=== PATIENT | female | born 1980 | race Caucasian/White ===

== ENCOUNTER 2019-05-22 14:34 | Inpatient (IN) | payer OTHER ==
[2019-05-22 18:10] VITALS: BMI 21.4
--- NOTE | 2019-05-22 19:01 | HP ---
COWS - Scale Resting Pulse: 0= [place] 80 or Below Sweatin= Chills/Flushing Restless Observation: 1= Difficult to Sit Still Pupil Size: 1= Pupils >than Normal Bone or Joint Aches: 2= Severe Diffuse Aches Runny Nose/ Eye Tearin= Runny Nose/Eyes GI Upset > 30mins: 3= Vomiting/Diarrhea Tremor Observation: 2= Slight Tremor Visible Yawning Observation: 2= >3x During Session Anxiety or Irritability: 2=Irritable/Anxious Goose Flesh Skin: 0=Smooth Skin COWS Score: 16 CIWA Score Nausea/Vomitin Muscle Tremors: 3 Anxiety: 3 Agitation: 3 Paroxysmal Sweats: 1-Minimal Palms Moist Orientation: 0-Oriented Tacttile Disturbances: 1-Very Mild Itch/Numbness Auditory Disturbances: 0-None Visual Disturbances: 0-None Headache: 2-Mild CIWA-Ar Total Score: 15 - Admission Criteria OASAS Guidelines: Admission for Medically Managed Detox: Requires at least one of the followin. CIWA greater than 12 2. Seizures within the past 24 hours 3. Delirium tremens within the past 24 hours 4. Hallucinations within the past 24 hours 5. Acute intervention needed for co occurring medical disorder 6. Acute intervention needed for co occurring psychiatric disorder 7. Severe withdrawal that cannot be handled at a lower level of care (continued vomiting, continued diarrhea, abnormal vital signs) requiring intravenous medication and/or fluids 8. Admitting History and Physical - Admission Chief Complaint: i need help to stop using heroin,alcohol,cocaine and [place] History of Present Illness: this 38 years old female with heroin,alcohol,cocaine,marijuana dependence seeking detox,withdrawal symptom no seizure no syncope nicotine dependence anxiety,insomnia last detox 2017,not completed,did not remember the facility longest sobriety 2 years plan for rehab after detox History Source: Patient Limitations to Obtaining History: No Limitations - Past Medical History ...LMP: 03/21/19 ...: No ...: 10 ...Para: 3 Psych: Yes: Anxiety, Other (insomnia) - Past Surgical History Past Surgical History: Yes: Appendectomy, Tonsillectomy Additional Past Surgical History: appendectomy at age 25 years ectopic left at age 31 tosillectomy at age of a15 - Smoking History Smoking history: Current every day smoker Have you smoked in the past 12 months: Yes Aproximately how many cigarettes per day: 30 - Alcohol/Substance Use Hx Alcohol Use: Yes History of Substance Use: reports: Cocaine, Heroin, Marijuana - Social History Usual Living Arrangement: Yes: With Child Occupation: unemployed History of Recent Travel: No Other Social History: this 38 years old female with heroin,alcohol,cocaine marijuana dependence,smoke 30 cigarette,unemployed ,for detox Admission [facility] Chief Complaint: i need help to stop using heroin,alcohol,cocaine and marijuana Allergies/Adverse Reactions: Allergies Allergy/AdvReac Type Severity Reaction Status Date / Time No Known Allergies Allergy Verified 05/22/19 18:06 History of Present Illness: this 38 years old female with heroin,alcohol,cocaine and marijuana dependence, seeking detox,withdrawal symptom, denied seizure denied syncope nicotine dependence anxiety,insomnia last detox 2018 plan for rehab after detox Exam Limitations: No Limitations - Ebola screening Have you traveled outside of the country in the last 21 days: No (N) Have you had contact with anyone from an Ebola affected area: No Do you have a fever: No - Review of Systems Constitutional: Chills, Loss of Appetite, Night Sweats, Changes in sleep, Weakness, Unintentional Wgt. Loss EENT: reports: Tearing, Nose Congestion Respiratory: reports: No Symptoms reported Cardiac: reports: No Symptoms Reported GI: reports: Diarrhea, Nausea, Poor Fluid Intake, Vomiting : reports: No Symptoms Reported Musculoskeletal: reports: Back Pain, Joint Pain, Muscle Pain Integumentary: reports: Dryness Neuro: reports: Headache, Tremors Endocrine: reports: No Symptoms Reported Hematology: reports: No Symptoms Reported Psychiatric: reports: No Sypmtoms Reported, Judgement Intact, Mood/Affect Appropiate, Orientated x3, Agitated, Anxious, other (insomnia) Patient History - Patient Medical History Hx Anemia: No Hx Asthma: No Hx Chronic Obstructive Pulmonary Disease (COPD): No Hx Cancer: No Hx Cardiac Disorders: No Hx Congestive Heart Failure: No Hx Hypertension: No Hx Hypercholesterolemia: No Hx Pacemaker: No HX Cerebrovascular Accident: No Hx Seizures: No Hx Dementia: No Hx Diabetes: No Hx Gastrointestinal Disorders: No Hx Liver Disease: No Hx Genitourinary Disorders: No Hx Sexually Transmitted Disorders: No Hx Renal Disease (ESRD): No Hx Thyroid Disease: No Hx Human Immunodeficiency Virus (HIV): No (last 11/18 negative) Hx Hepatitis C: No Hx Depression: Yes (anxiety,insomnia) Hx Suicide Attempt: No Hx Bipolar Disorder: No Hx Schizophrenia: No Other Medical History: no suicidal,no homicidal - Patient Surgical History Past Surgical History: No Hx Neurologic Surgery: No Hx Cataract Extraction: No Hx Cardiac Surgery: No Hx Lung Surgery: No Hx Breast Surgery: No Hx Breast Biopsy: No Hx Abdominal Surgery: No Hx Appendectomy: Yes (at age 25) Hx Cholecystectomy: No Hx Genitourinary Surgery: No Hx Section: No Hx Orthopedic Surgery: No Other Surgical History: ECTOPIC- 2012,tonsillectomy age 15 Anesthesia Reaction: No - PPD History Previous Implant?: Yes Documented Results: Negative w/o proof Implanted On Prior R Admission?: No PPD to be Administered?: Yes - Reproductive History Patient is a Female of Child Bearing Age (11 -55 yrs old): Yes Last Menstrual Period: 04/21/19 Patient : No - Smoking Cessation Smoking history: Current every day smoker Have you smoked in the past 12 months: Yes Aproximately how many cigarettes per day: 30 Hx Chewing Tobacco Use: No Initiated information on smoking cessation: No 'Breaking Loose' booklet given: 05/22/19 - Substance & Tx. History Hx Alcohol Use: Yes Hx Substance Use: Yes Substance Use Type: Alcohol, Cocaine, Heroin, Marijuana Hx Substance Use Treatment: Yes (2018) - Substances abused Heroin Substance route: Inhalation Frequency: Daily Amount used: 5 bags Age of first use: 38 Date of last use: 05/21/19 Alcohol Substance route: Oral Frequency: Daily Amount used: LIQUOR- 4 PINTS Age of first use: 12 Date of last use: 05/22/19 Crack Substance route: Smoking Frequency: Daily Amount used: $100 WORTH Age of first use: 25 Date of last use: 05/21/19 Marijuana/Hashish Substance route: Smoking Frequency: Daily Amount used: 20$ Age of first use: 17 Date of last use: 05/21/19 Admission Physical Exam BHS - Vital Signs Vital Signs: Vital Signs - 24 hr 05/22/19 05/22/19 18:06 18:21 Temperature 97.4 F L 97.4 F L Pulse Rate 65 65 Respiratory 18 18 Rate Blood Pressure 118/67 118/67 - Physical General Appearance: Yes: Moderate Distress, Tremorous, Irritable, Sweating, Anxious HEENTM: Yes: Normocephalic, ERIKA, Pharynx Normal Respiratory: Yes: Lungs Clear, Normal Breath Sounds, No Respiratory Distress Neck: Yes: Within Normal Limits, Supple, Trachea in good position Breast: Yes: Breast Exam Deferred Cardiology: Yes: Within Normal Limits, Regular Rhythm, Regular Rate, S1, S2 Abdominal: Yes: Within Normal Limits, Normal Bowel Sounds, Non Tender, Flat, Soft, Surgical Scar Genitourinary: Yes: Within Normal Limits Back: Yes: Muscle Spasm Musculoskeletal: Yes: Back pain, Muscle Pain Extremities: Yes: Tremors Neurological: Yes: personal care assistant II-XII NML intact, Fully Oriented, Alert, Motor Strength 5/5 Integumentary: Yes: Dry Lymphatic: Yes: Within Normal Limits - Diagnostic (1) Opioid dependence with withdrawal Current Visit: Yes Status: Acute (2) Alcohol dependence with uncomplicated withdrawal Current Visit: Yes Status: Acute (3) Cocaine dependence Current Visit: Yes Status: Acute (4) Cannabis abuse Current Visit: Yes Status: Acute (5) Weight loss Current Visit: Yes Status: Acute (6) Nicotine dependence Current Visit: Yes Status: Acute (7) Anxiety Current Visit: Yes Status: Acute (8) Insomnia Current Visit: Yes Status: Acute Cleared for Admission S - Detox or Rehab [facility] Level of Care: Medically Managed Detox Regimen/Protocol: Methadone/Librium Breathalyzer - Breathalyzer Breathalyzer: 0 Urine Drug Screen - Test Device Lot number: [id number] Expiration date: 12/30/20 - Control Is test valid?: Yes - Results Drug screen NEGATIVE: No Urine drug screen results: THC-Marijuana, FRANCINE-Cocaine, MOP-Opiates Inpatient Rehab Admission - Rehab Decision to Admit Inpatient rehab admission?: No
[2019-05-22] MEDS ORDERED: MAGNESIUM HYDROX 2400MG/30ML ORAL SUSPENSION 30 ML CUP PO PRN (19:19)
[2019-05-22] MEDS ORDERED: BISMUTH SUBSALICYLATE 524 MG/30 ML UD PO PRN (19:19)
[2019-05-22] MEDS ORDERED: cloNIDine HCL 0.1 MG TABLET PO PRN (19:19)
[2019-05-22] MEDS ORDERED: ACETAMINOPHEN 325 MG TABLET (FP) PO PRN (19:19)
[2019-05-22] MEDS ORDERED: MAGNESIUM CITRATE 300 ML BOTTLE PO PRN (19:19)
[2019-05-22] MEDS ORDERED: chlordiazePOXIDE HCL 25 MG CAPSULE PO PRN (19:19)
[2019-05-22] MEDS ORDERED: MAG HYDROX/AL HYDROX/SIMETH 30 ML UNIT-DOSE CUP PO PRN (19:19)
[2019-05-22] MEDS ORDERED: METHADONE HCL 10 MG TABLET (FOR DETOX USE ONLY) PO ONE (20:00)
[2019-05-22] MEDS: NICOTINE 21 MG/24 HOURS TOPICAL PATCH TD SCH (21:18)
[2019-05-22] MEDS: THIAMINE HCL 100 MG TABLET (FP) PO SCH (22:32)
[2019-05-22] MEDS: MELATONIN 5 MG TABLETS PO PRN (22:32)
[2019-05-22] MEDS: chlordiazePOXIDE HCL 25 MG CAPSULE PO SCH (22:32)
[2019-05-22] MEDS: METHOCARBAMOL 500 MG TABLET PO PRN (22:33)
[2019-05-23] MEDS: chlordiazePOXIDE HCL 25 MG CAPSULE PO SCH ×4 (05:48→22:07)
[2019-05-23] MEDS: ACETAMINOPHEN 325 MG TABLET (FP) PO PRN ×3 (05:50→22:07)
[2019-05-23] MEDS ORDERED: METHADONE HCL 5 MG TABLET (FOR DETOX USE ONLY) PO ONE (10:00)
[2019-05-23 10:42] LABS: HEMATOCRIT 41.3 % (32.4-45.2); HEMOGLOBIN 13.8 GM/dL (10.7-15.3); MCH 31.2 pg (25.7-33.7); MCHC 33.4 g/dl (32.0-36.0); MEAN CELL VOLUME 93.2 fl (80-96); MEAN PLT VOLUME 8.1 fl (7.5-11.1); PLATELET COUNT 252 K/MM3 (134-434); RBC 4.43 M/mm3 (3.60-5.2); RDW 13.7 % (11.6-15.6)
[2019-05-23] MEDS: NICOTINE 21 MG/24 HOURS TOPICAL PATCH TD SCH (10:42)
[2019-05-23] MEDS: NICOTINE POLACRILEX 2 MG GUM BUC PRN (10:43)
[2019-05-23] MEDS: PRENATAL VITAMINS W/ FOLIC ACID TABLET (FP) PO SCH (10:43)
[2019-05-23 10:55] LABS: ALBUMIN 3.8 g/dl (3.4-5.0); BILIRUBIN,TOTAL 0.7 mg/dL (0.2-1); BLOOD UREA NITROGEN 12.8 mg/dL (7-18); CALCIUM 9.5 mg/dL (8.5-10.1); CREATININE 0.7 mg/dL (0.55-1.3); POTASSIUM 3.6 mmol/L (3.5-5.1); TOT PROT 7.1 g/dl (6.4-8.2)
--- NOTE | 2019-05-23 13:03 | PN ---
S CIWA - CIWA Score Nausea/Vomitin-No Nausea/No Vomiting Muscle Tremors: 2 Anxiety: 3 Agitation: 0-Normal Activity Paroxysmal Sweats: 3 Orientation: 0-Oriented Tacttile Disturbances: 0-None Auditory Disturbances: 0-None Visual Disturbances: 0-None Headache: 2-Mild CIWA-Ar Total Score: 10 S COWS - Scale Resting Pulse: 0= [place] 80 or Below Sweatin= Beads of Sweat on Face Restless Observation: 1= Difficult to Sit Still Pupil Size: 0= Normal to Room Light Bone or Joint Aches: 1= Mild Discomfort Runny Nose/ Eye Tearin= None GI Upset > 30mins: 0= None Tremor Observation of Outstretched Hands: 2= Slight Tremor Visible Yawning Observation: 1= 1-2x During Session Anxiety or Irritability: 2=Irritable/Anxious Goose Flesh Skin: 0=Smooth Skin COWS Score: 10 S Progress Note (SOAP) Subjective: c/o moderate withdrawal symptoms. Objective: 05/23/19 13:04 Vital Signs 05/23/19 05/23/19 06:32 10:14 Temperature 97.7 F 97.7 F Pulse Rate 65 53 L Respiratory 18 16 Rate Blood Pressure 134/63 116/83 Laboratory Last Values WBC 6.0 K/mm3 (4.0-10.0) 05/23/19 07:35 RBC 4.43 M/mm3 (3.60-5.2) 05/23/19 07:35 Hgb 13.8 GM/dL (10.7-15.3) 05/23/19 07:35 Hct 41.3 % (32.4-45.2) 05/23/19 07:35 MCV 93.2 fl (80-96) 05/23/19 07:35 MCH 31.2 pg (25.7-33.7) 05/23/19 07:35 MCHC 33.4 g/dl (32.0-36.0) 05/23/19 07:35 RDW 13.7 % (11.6-15.6) 05/23/19 07:35 Plt Count 252 K/MM3 (134-434) 05/23/19 07:35 MPV 8.1 fl (7.5-11.1) 05/23/19 07:35 Sickle Cell Screen Negative (NEGATIVE) 05/23/19 07:35 Sodium 138 mmol/L (136-145) 05/23/19 07:35 Potassium 3.6 mmol/L (3.5-5.1) 05/23/19 07:35 Chloride 103 mmol/L (98-107) 05/23/19 07:35 Carbon Dioxide 29 mmol/L (21-32) 05/23/19 07:35 Anion Gap 7 MMOL/L (8-16) L 05/23/19 07:35 BUN 12.8 mg/dL (7-18) 05/23/19 07:35 Creatinine 0.7 mg/dL (0.55-1.3) 05/23/19 07:35 Est GFR (CKD-EPI)AfAm 127.39 05/23/19 07:35 Est GFR (CKD-EPI)NonAf 109.91 05/23/19 07:35 Random Glucose 121 mg/dL (74-106) H 05/23/19 07:35 Calcium 9.5 mg/dL (8.5-10.1) 05/23/19 07:35 Total Bilirubin 0.7 mg/dL (0.2-1) 05/23/19 07:35 AST 29 U/L (15-37) 05/23/19 07:35 ALT 54 U/L (13-61) 05/23/19 07:35 Alkaline Phosphatase 83 U/L (45-117) 05/23/19 07:35 Total Protein 7.1 g/dl (6.4-8.2) 05/23/19 07:35 Albumin 3.8 g/dl (3.4-5.0) 05/23/19 07:35 Labs noted. Assessment: 05/23/19 13:04 AOX3, in no acute respiratory distress. Full ROM, ambulating in the unit. Withdrawal symptoms Plan: continue detox.
[2019-05-23] MEDS: hydrOXYzine PAMOATE 25 MG CAPSULE (FP) PO PRN (13:15)
[2019-05-23] MEDS: METHOCARBAMOL 500 MG TABLET PO PRN (13:15)
[2019-05-23] MEDS: IBUPROFEN 400 MG TABLET (FP) PO PRN (18:04)
--- NOTE | 2019-05-23 18:44 | EKG ---
Test Reason : Blood Pressure : / mmHG Vent. Rate : 061 BPM Atrial Rate : 061 BPM P-R Int : 160 ms QRS Dur : 090 ms QT Int : 480 ms P-R-T Axes : -05 024 021 degrees QTc Int : 483 ms NORMAL SINUS RHYTHM NORMAL ECG NO PREVIOUS ECGS AVAILABLE Confirmed by CHERRY BANGURA MD ([id number]) on 05/23/2019 6:44:29 PM Referred By: Confirmed By:CHERRY BANGURA MD
[2019-05-23] MEDS: THIAMINE HCL 100 MG TABLET (FP) PO SCH (22:07)
[2019-05-24] MEDS: METHOCARBAMOL 500 MG TABLET PO PRN ×3 (01:51→22:19)
[2019-05-24] MEDS ORDERED: P-EPHED 60MG/TRIPROLIDI 2.5MG TABLET PO ONE (04:30)
[2019-05-24] MEDS ORDERED: PSEUDOEPHEDRINE HCL 30 MG TABLET PO ONE (04:30)
[2019-05-24] MEDS: chlordiazePOXIDE HCL 25 MG CAPSULE PO SCH ×4 (05:26→22:14)
--- NOTE | 2019-05-24 06:10 | PN ---
[facility] Progress Note Note: Patient complained of nasal congestion Vital Signs - 24 hr 05/23/19 05/23/19 05/23/19 06:32 10:14 14:00 Temperature 97.7 F 97.7 F 97.7 F Pulse Rate 65 53 L 64 Respiratory 18 16 16 Rate Blood Pressure 134/63 116/83 127/81 05/23/19 05/23/19 05/24/19 17:52 22:57 00:30 Temperature 96.8 F L 97.5 F L Pulse Rate 59 L 62 Respiratory 17 18 18 Rate Blood Pressure 102/67 109/63 Action: P-Ephed 60mg/ [place]idi 2.5mg 9Actifed) 1 combo oral ordered
[2019-05-24] MEDS ORDERED: METHADONE HCL 10 MG TABLET (FOR DETOX USE ONLY) PO ONE (10:00)
[2019-05-24] MEDS: PRENATAL VITAMINS W/ FOLIC ACID TABLET (FP) PO SCH (10:13)
[2019-05-24] MEDS: NICOTINE 21 MG/24 HOURS TOPICAL PATCH TD SCH (10:14)
[2019-05-24] MEDS: NICOTINE POLACRILEX 2 MG GUM BUC PRN (10:15)
[2019-05-24] MEDS ORDERED: P-EPHED 60MG/TRIPROLIDI 2.5MG TABLET PO PRN (10:57)
--- NOTE | 2019-05-24 11:06 | PN ---
[facility] CIWA - CIWA Score Nausea/Vomitin-No Nausea/No Vomiting Muscle Tremors: 3 Anxiety: 2 Agitation: 2 Paroxysmal Sweats: 2 Orientation: 0-Oriented Tacttile Disturbances: 0-None Auditory Disturbances: 0-None Visual Disturbances: 0-None Headache: 0-None Present CIWA-Ar Total Score: 9 BHS COWS - Scale Resting Pulse: 0= [place] 80 or Below Sweatin= Chills/Flushing Restless Observation: 1= Difficult to Sit Still Pupil Size: 0= Normal to Room Light Bone or Joint Aches: 1= Mild Discomfort Runny Nose/ Eye Tearin= Nasal Congestion GI Upset > 30mins: 0= None Tremor Observation of Outstretched Hands: 1= Tremor [place], Not Seen Yawning Observation: 1= 1-2x During Session Anxiety or Irritability: 2=Irritable/Anxious Goose Flesh Skin: 0=Smooth Skin COWS Score: 8 BHS Progress Note (SOAP) Subjective: dry/itchy feet sweats nasal congestion body aches I have a h/o of asthma anxiety constipation Objective: 05/24/19 11:04 Vital Signs Temperature 97.7 F 05/24/19 09:27 Pulse Rate 75 05/24/19 09:27 Respiratory Rate 18 05/24/19 09:27 Blood Pressure 125/68 05/24/19 09:27 O2 Sat by Pulse Oximetry (%) Laboratory Tests 05/23/19 05/23/19 05/23/19 07:35 07:35 07:35 WBC 6.0 RBC 4.43 Hgb 13.8 Hct 41.3 MCV 93.2 MCH 31.2 MCHC 33.4 RDW 13.7 Plt Count 252 MPV 8.1 Sickle Cell Screen Negative Sodium 138 Potassium 3.6 Chloride 103 Carbon Dioxide 29 Anion Gap 7 L BUN 12.8 Creatinine 0.7 Est GFR (CKD-EPI)AfAm 127.39 Est GFR (CKD-EPI)NonAf 109.91 Random Glucose 121 H Calcium 9.5 Total Bilirubin 0.7 AST 29 ALT 54 Alkaline Phosphatase 83 Total Protein 7.1 Albumin 3.8 RPR Titer 05/23/19 07:35 WBC RBC Hgb Hct MCV MCH MCHC RDW Plt Count MPV Sickle Cell Screen Sodium Potassium Chloride Carbon Dioxide Anion Gap BUN Creatinine Est GFR (CKD-EPI)AfAm Est GFR (CKD-EPI)NonAf Random Glucose Calcium Total Bilirubin AST ALT Alkaline Phosphatase Total Protein Albumin RPR Titer Nonreactive labs noted aaox3 ambulating no acute distress Assessment: 05/24/19 11:04 withdrawals sx Plan: continue detox increase fluids acitifed prn flonase n/s tinactin cream albuterol inh MOM/mylanta prn
[2019-05-24] MEDS: hydrOXYzine PAMOATE 25 MG CAPSULE (FP) PO PRN ×2 (13:31→19:59)
[2019-05-24] MEDS: FLUTICASONE PROP 0.05% 16 GM NASAL SPRAY NS SCH ×2 (13:33→22:14)
[2019-05-24] MEDS: TOLNAFTATE 1% CREAM 15 GM TUBE TP SCH ×2 (13:33→22:14)
[2019-05-24] MEDS: guaiFENesin 200 MG/10 ML 10 ML UNIT-DOSE CUPS PO PRN (19:59)
[2019-05-24] MEDS: MENTHOL/PHENOL 1 EACH UD MM PRN (20:00)
[2019-05-24] MEDS: THIAMINE HCL 100 MG TABLET (FP) PO SCH (22:14)
[2019-05-24] MEDS: MELATONIN 5 MG TABLETS PO PRN (22:15)
[2019-05-24] MEDS: IBUPROFEN 400 MG TABLET (FP) PO PRN (22:19)
[2019-05-25] MEDS ORDERED: chlordiazePOXIDE HCL 10 MG CAPSULE PO PRN
[2019-05-25] MEDS: guaiFENesin 200 MG/10 ML 10 ML UNIT-DOSE CUPS PO PRN (02:30)
[2019-05-25] MEDS: MENTHOL/PHENOL 1 EACH UD MM PRN (02:32)
[2019-05-25] MEDS: chlordiazePOXIDE HCL 10 MG CAPSULE PO SCH ×4 (05:26→22:10)
[2019-05-25] MEDS: ACETAMINOPHEN 325 MG TABLET (FP) PO PRN (05:27)
[2019-05-25] MEDS ORDERED: METHADONE HCL 5 MG TABLET (FOR DETOX USE ONLY) PO ONE (06:00)
--- NOTE | 2019-05-25 10:04 | PN ---
S CIWA - CIWA Score Nausea/Vomitin-No Nausea/No Vomiting Muscle Tremors: 2 Anxiety: 1-Mildly Anxious Agitation: 1-Slight > Activity Paroxysmal Sweats: No Perspiration Orientation: 0-Oriented Tacttile Disturbances: 0-None Auditory Disturbances: 0-None Visual Disturbances: 0-None Headache: 0-None Present CIWA-Ar Total Score: 4 BHS COWS - Scale Resting Pulse: 0= [place] 80 or Below Sweatin= Chills/Flushing Restless Observation: 1= Difficult to Sit Still Pupil Size: 0= Normal to Room Light Bone or Joint Aches: 1= Mild Discomfort Runny Nose/ Eye Tearin= None GI Upset > 30mins: 0= None Tremor Observation of Outstretched Hands: 1= Tremor [place], Not Seen Yawning Observation: 1= 1-2x During Session Anxiety or Irritability: 1=Feels Anxious/Irritable Goose Flesh Skin: 0=Smooth Skin COWS Score: 6 S Progress Note (SOAP) Subjective: I need to see psych; I was on psych medication but i cant remember the name right now sweats irritable chills Objective: 05/25/19 10:03 Vital Signs Temperature 97.3 F L 05/25/19 09:30 Pulse Rate 60 05/25/19 09:30 Respiratory Rate 20 05/25/19 09:30 Blood Pressure 128/64 05/25/19 09:30 O2 Sat by Pulse Oximetry (%) Laboratory Tests 05/23/19 05/23/19 05/23/19 07:35 07:35 07:35 WBC 6.0 RBC 4.43 Hgb 13.8 Hct 41.3 MCV 93.2 MCH 31.2 MCHC 33.4 RDW 13.7 Plt Count 252 MPV 8.1 Sickle Cell Screen Negative Sodium 138 Potassium 3.6 Chloride 103 Carbon Dioxide 29 Anion Gap 7 L BUN 12.8 Creatinine 0.7 Est GFR (CKD-EPI)AfAm 127.39 Est GFR (CKD-EPI)NonAf 109.91 Random Glucose 121 H Calcium 9.5 Total Bilirubin 0.7 AST 29 ALT 54 Alkaline Phosphatase 83 Total Protein 7.1 Albumin 3.8 RPR Titer 05/23/19 07:35 WBC RBC Hgb Hct MCV MCH MCHC RDW Plt Count MPV Sickle Cell Screen Sodium Potassium Chloride Carbon Dioxide Anion Gap BUN Creatinine Est GFR (CKD-EPI)AfAm Est GFR (CKD-EPI)NonAf Random Glucose Calcium Total Bilirubin AST ALT Alkaline Phosphatase Total Protein Albumin RPR Titer Nonreactive aaox3 ambulating no acute distress Assessment: 05/25/19 10:04 withdrawals Plan: continue detox increase fluids psych ordered
[2019-05-25] MEDS: FLUTICASONE PROP 0.05% 16 GM NASAL SPRAY NS SCH ×2 (10:07→22:10)
[2019-05-25] MEDS: TOLNAFTATE 1% CREAM 15 GM TUBE TP SCH ×2 (10:07→22:10)
[2019-05-25] MEDS: NICOTINE 21 MG/24 HOURS TOPICAL PATCH TD SCH (10:07)
[2019-05-25] MEDS: PRENATAL VITAMINS W/ FOLIC ACID TABLET (FP) PO SCH (10:08)
[2019-05-25] MEDS: METHOCARBAMOL 500 MG TABLET PO PRN ×2 (10:10→17:56)
[2019-05-25] MEDS: hydrOXYzine PAMOATE 25 MG CAPSULE (FP) PO PRN (10:10)
[2019-05-25] MEDS: IBUPROFEN 400 MG TABLET (FP) PO PRN (17:56)
[2019-05-25] MEDS: MELATONIN 5 MG TABLETS PO PRN (22:10)
[2019-05-25] MEDS: THIAMINE HCL 100 MG TABLET (FP) PO SCH (22:10)
[2019-05-26] MEDS: guaiFENesin 200 MG/10 ML 10 ML UNIT-DOSE CUPS PO PRN ×3 (01:45→23:03)
[2019-05-26] MEDS: IBUPROFEN 400 MG TABLET (FP) PO PRN (01:45)
[2019-05-26] MEDS: MENTHOL/PHENOL 1 EACH UD MM PRN (01:45)
[2019-05-26] MEDS: METHOCARBAMOL 500 MG TABLET PO PRN ×3 (01:45→17:24)
[2019-05-26] MEDS: chlordiazePOXIDE HCL 10 MG CAPSULE PO SCH ×2 (05:28→17:20)
[2019-05-26] MEDS: ACETAMINOPHEN 325 MG TABLET (FP) PO PRN (05:30)
[2019-05-26] MEDS: PRENATAL VITAMINS W/ FOLIC ACID TABLET (FP) PO SCH (10:25)
[2019-05-26] MEDS: FLUTICASONE PROP 0.05% 16 GM NASAL SPRAY NS SCH ×2 (10:26→22:20)
[2019-05-26] MEDS: NICOTINE POLACRILEX 2 MG GUM BUC PRN ×3 (10:26→20:58)
[2019-05-26] MEDS: NICOTINE 21 MG/24 HOURS TOPICAL PATCH TD SCH (10:26)
[2019-05-26] MEDS: TOLNAFTATE 1% CREAM 15 GM TUBE TP SCH ×2 (10:27→22:20)
[2019-05-26] MEDS: hydrOXYzine PAMOATE 25 MG CAPSULE (FP) PO PRN (10:28)
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
[2019-05-26] MEDS: ALBUTEROL SO4 8 GM HFA INHALER IH PRN ×2 (10:55→18:19)
[2019-05-26 11:09] LABS: URINE APPEARANCE CLEAR; URINE BILIRUBIN NEGATIVE (NEGATIVE); URINE COLOR YELLOW; URINE GLUCOSE (UA) NEGATIVE (NEGATIVE); URINE KETONE NEGATIVE (NEGATIVE); URINE LEUK ESTERASE NEGATIVE (NEGATIVE); URINE NITRITE NEGATIVE (NEGATIVE); URINE PROTEIN NEGATIVE (NEGATIVE); URINE UROBILINOGEN 0.2 mg/dL (0.2-1.0)
--- NOTE | 2019-05-26 12:02 | PN ---
[facility] CIWA - CIWA Score Nausea/Vomitin-No Nausea/No Vomiting Muscle Tremors: 2 Anxiety: 1-Mildly Anxious Agitation: 1-Slight > Activity Paroxysmal Sweats: No Perspiration Orientation: 0-Oriented Tacttile Disturbances: 0-None Auditory Disturbances: 0-None Visual Disturbances: 0-None Headache: 0-None Present CIWA-Ar Total Score: 4 BHS COWS - Scale Resting Pulse: 0= [place] 80 or Below Sweatin= Chills/Flushing Restless Observation: 1= Difficult to Sit Still Pupil Size: 0= Normal to Room Light Bone or Joint Aches: 1= Mild Discomfort Runny Nose/ Eye Tearin= None GI Upset > 30mins: 0= None Tremor Observation of Outstretched Hands: 1= Tremor [place], Not Seen Yawning Observation: 0= None Anxiety or Irritability: 1=Feels Anxious/Irritable Goose Flesh Skin: 0=Smooth Skin COWS Score: 5 [facility] Progress Note (SOAP) Subjective: muscle cramps Objective: 05/26/19 12:01 Vital Signs Temperature 97.7 F 05/26/19 09:24 Pulse Rate 58 L 05/26/19 09:24 Respiratory Rate 18 05/26/19 09:24 Blood Pressure 124/76 05/26/19 09:24 O2 Sat by Pulse Oximetry (%) aaox3 ambulating no acute distress Assessment: 05/26/19 12:01 withdrawals Plan: continue detox muscle relaxant prn d/c in am
[2019-05-26] MEDS: hydrOXYzine PAMOATE 50 MG CAPSULE (FP) PO PRN (14:19)
[2019-05-26] MEDS: GABAPENTIN 300 MG CAPSULE (FP) PO SCH ×2 (14:19→22:20)
[2019-05-26] MEDS ORDERED: traZODone HCL 100 MG TABLET (FP) PO SCH (22:00)
[2019-05-26] MEDS: THIAMINE HCL 100 MG TABLET (FP) PO SCH (22:21)
[2019-05-27] MEDS ORDERED: chlordiazePOXIDE HCL 10 MG CAPSULE PO ONE (05:00)
[2019-05-27] MEDS: GABAPENTIN 300 MG CAPSULE (FP) PO SCH (06:02)
[2019-05-27] MEDS: guaiFENesin 200 MG/10 ML 10 ML UNIT-DOSE CUPS PO PRN (06:05)
[2019-05-27 09:19] VITALS: BP 118/88; PULSE 92; TEMP 98.2
--- NOTE | 2019-05-27 09:19 | DS ---
[facility] Detox Discharge Summary Admission Date: 05/22/19 Discharge Date: 05/27/19 - History Present History: Alcohol Dependence, Cannabis Dependence, Cocaine Dependence, Opioid Dependence - Physical Exam Results Vital Signs: Vital Signs Temperature 98.1 F 05/27/19 07:11 Pulse Rate 72 05/27/19 07:11 Respiratory Rate 18 05/27/19 07:11 Blood Pressure 123/85 05/27/19 07:11 O2 Sat by Pulse Oximetry (%) Pertinent Admission Physical Exam Findings: Vital Signs Temperature 98.1 F 05/27/19 07:11 Pulse Rate 72 05/27/19 07:11 Respiratory Rate 18 05/27/19 07:11 Blood Pressure 123/85 05/27/19 07:11 O2 Sat by Pulse Oximetry (%) Laboratory Tests 05/23/19 05/23/19 05/23/19 07:35 07:35 07:35 WBC 6.0 RBC 4.43 Hgb 13.8 Hct 41.3 MCV 93.2 MCH 31.2 MCHC 33.4 RDW 13.7 Plt Count 252 MPV 8.1 Sickle Cell Screen Negative Sodium 138 Potassium 3.6 Chloride 103 Carbon Dioxide 29 Anion Gap 7 L BUN 12.8 Creatinine 0.7 Est GFR (CKD-EPI)AfAm 127.39 Est GFR (CKD-EPI)NonAf 109.91 Random Glucose 121 H Calcium 9.5 Total Bilirubin 0.7 AST 29 ALT 54 Alkaline Phosphatase 83 Total Protein 7.1 Albumin 3.8 Urine Color Urine Appearance Urine pH Ur Specific [place] Urine Protein Urine Glucose (UA) Urine Ketones Urine Blood Urine Nitrite Urine Bilirubin Urine Urobilinogen Ur Leukocyte Esterase RPR Titer 05/23/19 05/26/19 07:35 08:15 WBC RBC Hgb Hct MCV MCH MCHC RDW Plt Count MPV Sickle Cell Screen Sodium Potassium Chloride Carbon Dioxide Anion Gap BUN Creatinine Est GFR (CKD-EPI)AfAm Est GFR (CKD-EPI)NonAf Random Glucose Calcium Total Bilirubin AST ALT Alkaline Phosphatase Total Protein Albumin Urine Color Yellow Urine Appearance Clear Urine pH 5.0 Ur Specific [place] 1.011 Urine Protein Negative Urine Glucose (UA) Negative Urine Ketones Negative Urine Blood Negative Urine Nitrite Negative Urine Bilirubin Negative Urine Urobilinogen 0.2 Ur Leukocyte Esterase Negative RPR Titer Nonreactive aaox3 ambulating no acute distress - Treatment Hospital Course: Detox Protocol Followed, Detoxed Safely, Responded well, Discharged Condition Good, Rehab Referral Accepted Patient has Accepted a Rehab Referral to: pt referred to [facility] - Medication Discharge Medications: Ambulatory Orders NK [No Known Home Medication] 05/22/19 - Diagnosis (1) Alcohol dependence with uncomplicated withdrawal Current Visit: Yes Status: Chronic (2) Anxiety Current Visit: Yes Status: Acute (3) Cannabis abuse Current Visit: Yes Status: Chronic (4) Cocaine dependence Current Visit: Yes Status: Chronic Qualifiers: Substance use status: uncomplicated Qualified Code(s): F14.20 - Cocaine dependence, uncomplicated (5) Insomnia Current Visit: Yes Status: Acute (6) Opioid dependence with withdrawal Current Visit: Yes Status: Chronic (7) Substance induced mood disorder Current Visit: Yes Status: Acute (8) Substance-induced sleep disorder Current Visit: Yes Status: Acute (9) Bronchial asthma Current Visit: Yes Status: Chronic (10) Mood disorder Current Visit: Yes Status: Chronic (11) Nicotine dependence Current Visit: Yes Status: Chronic (12) PTSD (post-traumatic stress disorder) Current Visit: Yes Status: Chronic (13) S/P appendectomy Current Visit: No Status: Resolved (14) S/P tonsillectomy Current Visit: No Status: Resolved (15) Bipolar disorder Current Visit: Yes Status: Ruled-out - AMA Did Patient Leave Against Medical Advice: No
[2019-05-27] MEDS: FLUTICASONE PROP 0.05% 16 GM NASAL SPRAY NS SCH (10:14)
[2019-05-27] MEDS: NICOTINE 21 MG/24 HOURS TOPICAL PATCH TD SCH (10:15)
[2019-05-27] MEDS: PRENATAL VITAMINS W/ FOLIC ACID TABLET (FP) PO SCH (10:17)
[2019-05-27] MEDS: IBUPROFEN 400 MG TABLET (FP) PO PRN (10:17)
[2019-05-27] MEDS: hydrOXYzine PAMOATE 50 MG CAPSULE (FP) PO PRN (10:19)
[2019-05-27] MEDS: NICOTINE POLACRILEX 2 MG GUM BUC PRN (10:29)
[2019-05-27] MEDS: TOLNAFTATE 1% CREAM 15 GM TUBE TP SCH (10:30)
== END 2019-05-27 12:35 | disposition home or self-care (01) | DRG 773 ==
LOC: YASAS 14:34 → Y6N 19:08
PROVIDERS: ADMIT Allergy & Immunology; ATTEND Allergy & Immunology
PROC: HZ2ZZZZ Detoxification Services for Substance Abuse Treatment (ICD-10-PCS; principal; 2019-05-22)
DX: F11.23 Opioid dependence with withdrawal (principal); F10.230 Alcohol dependence with withdrawal, uncomplicated; F14.20 Cocaine dependence, uncomplicated; F12.20 Cannabis dependence, uncomplicated; F17.210 Nicotine dependence, cigarettes, uncomplicated; F19.24 Other psychoactive substance dependence with psychoactive substance-induced mood disorder; F19.282 Other psychoactive substance dependence with psychoactive substance-induced sleep disorder; F39 Unspecified mood [affective] disorder; F43.10 Post-traumatic stress disorder, unspecified; F41.9 Anxiety disorder, unspecified; J45.998 Other asthma; G47.00 Insomnia, unspecified
CPT/HCPCS: 36415; 80053; 81003; 81025; 85027; 85660; 86593; 93005; 93010

== ENCOUNTER 2019-08-07 12:24 | Inpatient (IN) | payer OTHER ==
--- NOTE | 2019-08-07 14:09 | BHS.RME ---
Substance Use & Tx History - Substance Use History heroin Substance amount: 1 bundle Frequency of use: Daily Substance route: Inhalation (ex: sniffing or snorting) Date of Last Use: 08/06/19 cocaine Substance amount: $200 Frequency of use: Daily Substance route: Smoking Date of Last Use: 08/06/19 Alcohol Substance amount: 3 pints Frequency of use: Daily Substance route: Oral Date of Last Use: 08/07/19 Cannabis Substance amount: 1 blunt Frequency of use: Daily Substance route: Smoking Date of Last Use: 08/06/19 - Last Treatment Date of last treatment: 05/22/19 Treatment type: Substance Use Disorder (ROLAN) Where was last treatment: Detox ([facility] detox) Physical/Psych/Mental Status - Behavior General Behavior: Increased activity (restlessness, agitation) Eye Contact: Decreased - Cooperativeness Cooperativeness: Cooperative - Thinking Thought Processes: Logical, Goal Directed Thought content: Future oriented Perceptions: Hallucinations (auditory, visual, olfactory) (history of hallucinations (visual and auditory ) - none now) - Physical Health Problems Is patient presently having any pain?: No Does patient presently have any injuries (include location): No Does patient currently have a fever: No Is patient : No COWS - Scale Resting Pulse: 0= [place] 80 or Below Sweatin= Chills/Flushing Restless Observation: 3= Extraneous Movement Pupil Size: 0= Normal to Room Light Bone or Joint Aches: 1= Mild Discomfort Runny Nose/ Eye Tearin= Runny Nose/Eyes GI Upset > 30mins: 2= Nausea/Diarrhea Tremor Observation: 2= Slight Tremor Visible Yawning Observation: 1= 1-2x During Session Anxiety or Irritability: 1=Feels Anxious/Irritable Goose Flesh Skin: 0=Smooth Skin COWS Score: 13 CIWA Nausea/Vomitin-Mild Nausea/No Vomiting Muscle Tremors: 3 Anxiety: 4-Mod. Anxious/Guarded Agitation: 4-Moderately Restless Paroxysmal Sweats: 1-Minimal Palms Moist Orientation: 1-Uncertain about Date Tacttile Disturbances: 1-Very Mild Itch/Numbness Auditory Disturbances: 1-Very Mild Visual Disturbances: 1-Very Mild Sensitivity Headache: 2-Mild CIWA-Ar Total Score: 19
--- NOTE | 2019-08-07 14:21 | HP ---
COWS - Scale Resting Pulse: 0= [place] 80 or Below Sweatin= Chills/Flushing Restless Observation: 3= Extraneous Movement Pupil Size: 0= Normal to Room Light Bone or Joint Aches: 1= Mild Discomfort Runny Nose/ Eye Tearin= Runny Nose/Eyes GI Upset > 30mins: 2= Nausea/Diarrhea Tremor Observation: 2= Slight Tremor Visible Yawning Observation: 1= 1-2x During Session Anxiety or Irritability: 1=Feels Anxious/Irritable Goose Flesh Skin: 0=Smooth Skin COWS Score: 13 CIWA Score Nausea/Vomitin-Mild Nausea/No Vomiting Muscle Tremors: 3 Anxiety: 4-Mod. Anxious/Guarded Agitation: 4-Moderately Restless Paroxysmal Sweats: 1-Minimal Palms Moist Orientation: 1-Uncertain about Date Tacttile Disturbances: 1-Very Mild Itch/Numbness Auditory Disturbances: 1-Very Mild Visual Disturbances: 1-Very Mild Sensitivity Headache: 2-Mild CIWA-Ar Total Score: 19 - Admission Criteria [facility]ASAS Guidelines: Admission for Medically Managed Detox: Requires at least one of the followin. CIWA greater than 12 2. Seizures within the past 24 hours 3. Delirium tremens within the past 24 hours 4. Hallucinations within the past 24 hours 5. Acute intervention needed for co occurring medical disorder 6. Acute intervention needed for co occurring psychiatric disorder 7. Severe withdrawal that cannot be handled at a lower level of care (continued vomiting, continued diarrhea, abnormal vital signs) requiring intravenous medication and/or fluids 8. Patient presents the following: CIWA greater than 12 Admission Criteria Met: Admission criteria met Admitting History and Physical - Admission History Source: Patient Limitations to Obtaining History: No Limitations - Past Medical History ...LMP: 04/21/19 Psych: Yes: Addictions, Anxiety, Other (insomnia) Dermatology: Yes: Other (tinea pedis) - Past Surgical History Past Surgical History: Yes: Appendectomy, Tonsillectomy - Smoking History Smoking history: Current every day smoker Have you smoked in the past 12 months: Yes Aproximately how many cigarettes per day: 30 - Alcohol/Substance Use Hx Alcohol Use: Yes History of Substance Use: reports: Cocaine, Heroin, Marijuana - Social History Usual Living Arrangement: Yes: With Child (lives in apartment with three children and partner) ADL: Independent Occupation: unemployed History of Recent Travel: No Admission ROS S - [facility] Chief Complaint: I have to get my life together, I want to stop using, maybe I could get a job, I need to refocus my life. Allergies/Adverse Reactions: Allergies Allergy/AdvReac Type Severity Reaction Status Date / Time No Known Allergies Allergy Verified 05/22/19 18:06 History of Present Illness: 38 yo woman here for detox from opiates and alcohol, also using cocaine and marijuana. Last in detox was here at [facility] 05/22/19 - she completed detox and went into rehab at [facility] where she graduated 06/17/2019 - she went on methadone program (? [facility], 50mg) for a few weeks after that but went off it as did not like having to go every day, she subsequently relapsed. No overdoses, has had black outs but no seizures. She drinks first thing in the morning to get going - she gets very sick if she tries to stop using on her own: "I get so shaky I thought I was having a seizure" Interested in Vivitrol injection. [facility]: Search Terms: sheila pichardo, 1980 Search Date: 08/07/2019 14:10:16 PM The Drug Utilization Report below displays all of the controlled substance prescriptions, if any, that your patient has filled in the last twelve months. The information displayed on this report is compiled from pharmacy submissions to the Department, and accurately reflects the information as submitted by the pharmacies. This report was requested by: Gayathri Pepper | Reference #: [id number] Others' Prescriptions Patient Name: Sheila Pichardo Date: 1980 Address: [address] [place] [address] Sex: Female Rx Written Rx Dispensed Drug Quantity Days Supply Prescriber Name Payment Method Dispenser chlordiazepoxide 10 mg capsule 120 30 Catherine Baker MD [facility]. Exam Limitations: No Limitations - Ebola screening Have you traveled outside of the country in the last 21 days: No Have you been sick,other than usual withdrawal symptoms: No Do you have a fever: No - Review of Systems Constitutional: Malaise, Changes in sleep, Weakness EENT: reports: Nose Congestion, Other (eyes sensitive to light) Respiratory: reports: No Symptoms reported Cardiac: reports: No Symptoms Reported GI: reports: Nausea, Indigestion, Abdominal cramping : reports: Dysuria Musculoskeletal: reports: Back Pain, Muscle Pain Integumentary: reports: No Symptoms Reported Neuro: reports: Headache, Numbness, Tingling, Tremors Endocrine: reports: No Symptoms Reported Hematology: reports: No Symptoms Reported Psychiatric: reports: Judgement Intact, Mood/Affect Appropiate, Anxious Other Systems: Reviewed and Negative Patient History - Patient Medical History Hx Anemia: No Hx Asthma: No Hx Chronic Obstructive Pulmonary Disease (COPD): No Hx Cancer: No Hx Cardiac Disorders: No Hx Congestive Heart Failure: No Hx Hypertension: No Hx Hypercholesterolemia: No Hx Pacemaker: No HX Cerebrovascular Accident: No Hx Seizures: No Hx Dementia: No Hx Diabetes: No Hx Gastrointestinal Disorders: No Hx Liver Disease: No Hx Genitourinary Disorders: No Hx Sexually Transmitted Disorders: No Hx Renal Disease (ESRD): No Hx Thyroid Disease: No Hx Human Immunodeficiency Virus (HIV): No (last 11/18 negative) Hx Hepatitis C: No Hx Depression: Yes (anxiety,insomnia) Hx Suicide Attempt: No Hx Bipolar Disorder: No Hx Schizophrenia: Yes - Patient Surgical History Past Surgical History: No Hx Neurologic Surgery: No Hx Cataract Extraction: No Hx Cardiac Surgery: No Hx Lung Surgery: No Hx Breast Surgery: No Hx Breast Biopsy: No Hx Abdominal Surgery: No Hx Appendectomy: Yes (at age 25) Hx Cholecystectomy: No Hx Genitourinary Surgery: Yes (IUD) Hx Section: No Hx Orthopedic Surgery: No Other Surgical History: ECTOPIC- 2012,tonsillectomy age 15 Anesthesia Reaction: No - PPD History Previous Implant?: Yes Documented Results: Negative w/proof Implanted On Prior [facility] Admission?: Yes Date: 05/24/19 PPD to be Administered?: No - Reproductive History Patient is a Female of Child Bearing Age (11 -55 yrs old): Yes Last Menstrual Period: 04/21/19 Patient : No - Smoking Cessation Smoking history: Current every day smoker Have you smoked in the past 12 months: Yes Aproximately how many cigarettes per day: 30 Hx Chewing Tobacco Use: No Initiated information on smoking cessation: Yes 'Breaking Loose' booklet given: 08/07/19 (give on floor) - Substance & Tx. History Hx Alcohol Use: Yes Hx Substance Use: Yes Substance Use Type: Alcohol, Cocaine, Heroin, Marijuana Hx Substance Use Treatment: Yes (detox, rehab, methadone) - Substances abused Alcohol Substance route: Oral Frequency: Daily Amount used: 3 pints Age of first use: 16 Date of last use: 08/07/19 Heroin Substance route: Inhalation Amount used: 1 bundle Age of first use: 37 Date of last use: 08/06/19 Cocaine Substance route: Smoking Frequency: Daily Amount used: $200 Age of first use: 22 Date of last use: 08/06/19 Marijuana/Hashish Substance route: Smoking Frequency: Daily Amount used: 1 blunt Age of first use: 17 Date of last use: 08/06/19 Admission Physical Exam S - Vital Signs Vital Signs: 145/102 P72 R18 T96.8 - Physical General Appearance: Yes: Nourished, Appropriately Dressed, Moderate Distress, Tremorous, Anxious HEENTM: Yes: EOMI, Hearing grossly Normal, Normocephalic, Normal Voice, Pharynx Normal Respiratory: Yes: Normal Breath Sounds, No Respiratory Distress Neck: Yes: No masses,lesions,Nodules Breast: Yes: Breast Exam Deferred Cardiology: Yes: Regular Rhythm, Regular Rate Abdominal: Yes: Soft, Protuberent Genitourinary: Yes: Frequency, Dysuria Back: Yes: Normal Inspection Musculoskeletal: Yes: full range of Motion, Gait Steady, Back pain, Muscle Pain Extremities: Yes: Normal Inspection, Normal Range of Motion, Non-Tender, Tremors Neurological: Yes: Alert, Motor Strength 5/5, Normal Mood/Affect, Normal Response, Numbness Integumentary: Yes: Normal Color, Warm, Rash (between toes scaly rash) Lymphatic: Yes: Within Normal Limits - Diagnostic (1) Opioid dependence with withdrawal Current Visit: Yes Status: Chronic (2) Alcohol dependence with uncomplicated withdrawal Current Visit: Yes Status: Chronic (3) Cannabis abuse Current Visit: Yes Status: Chronic (4) Cocaine dependence Current Visit: Yes Status: Chronic Qualifiers: Substance use status: uncomplicated Qualified Code(s): F14.20 - Cocaine dependence, uncomplicated (5) Nicotine dependence Current Visit: Yes Status: Chronic Qualifiers: Nicotine product type: cigarettes Substance use status: uncomplicated Qualified Code(s): F17.210 - Nicotine dependence, cigarettes, uncomplicated (6) Tinea pedis Current Visit: Yes Status: Chronic Qualifiers: Laterality: bilateral Qualified Code(s): B35.3 - Tinea pedis (7) Eyes sensitive to light Current Visit: Yes Status: Chronic Qualifiers: Laterality: bilateral Qualified Code(s): H53.143 - Visual discomfort, bilateral Cleared for Admission S - Detox or Rehab [facility] Level of Care: Medically Managed Detox Regimen/Protocol: Methadone/Librium Breathalyzer - Breathalyzer Breathalyzer: 0.98 Urine Drug Screen - Test Device Lot number: [id number] Expiration date: 05/01/21 - Control Is test valid?: Yes - Results Drug screen NEGATIVE: No Urine drug screen results: THC-Marijuana, FRANCINE-Cocaine, FEN-Fentanyl, MOP-Opiates Inpatient Rehab Admission - Rehab Decision to Admit Inpatient rehab admission?: No
[2019-08-07] MEDS ORDERED: NICOTINE POLACRILEX 4 MG GUM BUC PRN (14:30)
[2019-08-07] MEDS ORDERED: BISMUTH SUBSALICYLATE 524 MG/30 ML UD PO PRN (14:30)
[2019-08-07] MEDS ORDERED: ACETAMINOPHEN 325 MG TABLET (FP) PO PRN ×2 (14:30)
[2019-08-07] MEDS ORDERED: MENTHOL/PHENOL 1 EACH UD MM PRN (14:30)
[2019-08-07] MEDS ORDERED: cloNIDine HCL 0.1 MG TABLET PO PRN (14:30)
[2019-08-07] MEDS ORDERED: chlordiazePOXIDE HCL 25 MG CAPSULE PO ONE (14:30)
[2019-08-07] MEDS ORDERED: IBUPROFEN 400 MG TABLET (FP) PO PRN (14:30)
[2019-08-07] MEDS ORDERED: chlordiazePOXIDE HCL 25 MG CAPSULE PO PRN (14:30)
[2019-08-07] MEDS ORDERED: METHADONE HCL 10 MG TABLET (FOR DETOX USE ONLY) PO ONE (14:30)
[2019-08-07] MEDS ORDERED: MAG HYDROX/AL HYDROX/SIMETH 30 ML UNIT-DOSE CUP PO PRN (14:30)
[2019-08-07] MEDS ORDERED: MAGNESIUM HYDROX 2400MG/30ML ORAL SUSPENSION 30 ML CUP PO PRN (14:30)
[2019-08-07] MEDS ORDERED: MAGNESIUM CITRATE 300 ML BOTTLE PO PRN (14:30)
[2019-08-07] MEDS ORDERED: ONDANSETRON *ODT* 4 MG TABLET SL ONE (14:30)
[2019-08-07] MEDS ORDERED: METHOCARBAMOL 500 MG TABLET PO PRN (14:30)
[2019-08-07 14:49] VITALS: BMI 32.5
[2019-08-07] MEDS: NICOTINE 21 MG/24 HOURS TOPICAL PATCH TD SCH (15:53)
[2019-08-07] MEDS: chlordiazePOXIDE HCL 25 MG CAPSULE PO SCH ×2 (17:50→22:46)
[2019-08-07] MEDS: THIAMINE HCL 100 MG TABLET (FP) PO SCH (22:46)
[2019-08-07] MEDS: MELATONIN 5 MG TABLETS PO SCH (22:46)
[2019-08-07] MEDS: TOLNAFTATE 1% CREAM 15 GM TUBE TP SCH (22:47)
[2019-08-08] MEDS: chlordiazePOXIDE HCL 25 MG CAPSULE PO SCH ×4 (05:45→22:32)
[2019-08-08] MEDS ORDERED: METHADONE (DETOX) 20 MG, METHADONE (DETOX) 5 MG PO ONE (10:00)
--- NOTE | 2019-08-08 10:10 | PN ---
S CIWA - CIWA Score Nausea/Vomitin-Mild Nausea/No Vomiting Muscle Tremors: 3 Anxiety: 3 Agitation: 0-Normal Activity Paroxysmal Sweats: 2 Orientation: 0-Oriented Tacttile Disturbances: 1-Very Mild Itch/Numbness Auditory Disturbances: 0-None Visual Disturbances: 2-Mild Sensitivity Headache: 1-Very Mild CIWA-Ar Total Score: 13 BHS COWS - Scale Resting Pulse: 0= [place] 80 or Below Sweatin= Chills/Flushing Restless Observation: 0= Sits Still Pupil Size: 1= Pupils >than Normal Bone or Joint Aches: 1= Mild Discomfort Runny Nose/ Eye Tearin= Nasal Congestion GI Upset > 30mins: 2= Nausea/Diarrhea Tremor Observation of Outstretched Hands: 2= Slight Tremor Visible Yawning Observation: 0= None Anxiety or Irritability: 1=Feels Anxious/Irritable Goose Flesh Skin: 3=Piloerection COWS Score: 12 BHS Progress Note (SOAP) Subjective: 38 years old female admitted on 08/07/19 for alcohol and opiate withdrawal sx management treating with libirum and methadone detox regiments requests ensure for poor appetite bmi 29.8 ensure po od for satisfaction right inferior orbital bruise noted reports fell weeks ago denies alteration vision denies pain Objective: 08/08/19 10:22 Vital Signs Temperature 97.6 F 08/08/19 08:52 Pulse Rate 69 08/08/19 08:52 Respiratory Rate 18 08/08/19 08:52 Blood Pressure 121/86 08/08/19 08:52 O2 Sat by Pulse Oximetry (%) 08/08/19 10:22 lab pending Assessment: 08/08/19 10:22 alcohol and opiate withdrawal Plan: librium and methadone detox regimenbts
[2019-08-08] MEDS: PRENATAL VITAMINS W/ FOLIC ACID TABLET (FP) PO SCH (10:30)
[2019-08-08] MEDS ORDERED: METHADONE HCL 5 MG TABLET (FOR DETOX USE ONLY) ONE (10:31)
[2019-08-08] MEDS ORDERED: METHADONE HCL 10 MG TABLET (FOR DETOX USE ONLY) ONE (10:31)
[2019-08-08] MEDS: NICOTINE 21 MG/24 HOURS TOPICAL PATCH TD SCH (10:32)
[2019-08-08] MEDS ORDERED: hydrOXYzine PAMOATE 25 MG CAPSULE (FP) PO PRN (10:36)
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
[2019-08-08] MEDS: TOLNAFTATE 1% CREAM 15 GM TUBE TP SCH ×2 (11:15→22:33)
[2019-08-08 11:40] LABS: HEMATOCRIT 41.5 % (32.4-45.2); HEMOGLOBIN 14.3 GM/dL (10.7-15.3); MCHC 34.5 g/dl (32.0-36.0); MEAN CELL VOLUME 89.7 fl (80-96); PLATELET COUNT 297 K/MM3 (134-434); RBC 4.63 M/mm3 (3.60-5.2); RDW 13.3 % (11.6-15.6); WHITE BLOOD COUNT 7.1 K/mm3 (4.0-10.0)
[2019-08-08 11:53] LABS: ALBUMIN 4.1 g/dl (3.4-5.0); BILIRUBIN,TOTAL 0.8 mg/dL (0.2-1); BLOOD UREA NITROGEN 15.5 mg/dL (7-18); CALCIUM 9.7 mg/dL (8.5-10.1); CREATININE 0.7 mg/dL (0.55-1.3); POTASSIUM 3.1 mmol/L (3.5-5.1); TOT PROT 7.8 g/dl (6.4-8.2)
[2019-08-08] MEDS ORDERED: FLU VACCINE QUAD 60 MCG/0.5 ML (MDV 19-20) IM ONE (12:00)
[2019-08-08] MEDS ORDERED: PNEUMOCOCCAL 23 VACCINE 0.5 ML VIAL IM ONE (12:00)
[2019-08-08] MEDS ORDERED: PNEUMOC 13-VAL CONJ-DIP CRM/PF 0.5 ML DISP.SYRIN IM ONE (12:00)
[2019-08-08] MEDS: MINERAL OIL/PETROLAT/WATER TOPICAL CREAM 113 GM JAR TP SCH (12:53)
[2019-08-08] MEDS: SODIUM CHLORIDE NASAL SPRAY 44 ML BOTTLE NS SCH ×2 (13:54→22:32)
[2019-08-08] MEDS: hydrOXYzine PAMOATE 50 MG CAPSULE (FP) PO PRN ×2 (18:32→22:36)
[2019-08-08] MEDS: THIAMINE HCL 100 MG TABLET (FP) PO SCH (22:32)
[2019-08-08] MEDS: MELATONIN 5 MG TABLETS PO SCH (22:32)
[2019-08-09] MEDS: chlordiazePOXIDE HCL 25 MG CAPSULE PO SCH ×2 (06:19→10:20)
[2019-08-09] MEDS: SODIUM CHLORIDE NASAL SPRAY 44 ML BOTTLE NS SCH (06:20)
[2019-08-09] MEDS: hydrOXYzine PAMOATE 50 MG CAPSULE (FP) PO PRN (07:09)
[2019-08-09] MEDS ORDERED: METHADONE HCL 10 MG TABLET (FOR DETOX USE ONLY) PO ONE (10:00)
[2019-08-09] MEDS: PRENATAL VITAMINS W/ FOLIC ACID TABLET (FP) PO SCH (10:19)
[2019-08-09] MEDS: TOLNAFTATE 1% CREAM 15 GM TUBE TP SCH (10:19)
[2019-08-09] MEDS: NICOTINE 21 MG/24 HOURS TOPICAL PATCH TD SCH (10:23)
[2019-08-09] MEDS: MINERAL OIL/PETROLAT/WATER TOPICAL CREAM 113 GM JAR TP SCH (10:23)
[2019-08-09 11:02] VITALS: BP 97/70; PULSE 90; TEMP 96.6
--- NOTE | 2019-08-09 15:37 | DS ---
[facility] Detox Discharge Summary Admission Date: 08/07/19 Discharge Date: 08/09/19 - History Present History: Alcohol Dependence, Sedative Dependence Additional Comments: 38 years old female admitted on 08/07/19 for alcohl and opiate withdrawal sx management treated with librium and methadone detox regiment Ms Pichardo insists to leave the detox unit today "I have to go" alert oriented x 3 no acute distress speech clearly coherently ambulating steady gait seen by psychiatrist resume gabapentin vistaril trazadone patient had not participated in groups or meeting rejected aftercare referral Pertinent Past History: time for discharge 55 minutes discussed benefits of librium and methadone detox completion - Physical Exam Results Vital Signs: Vital Signs Temperature 96.6 F L 08/09/19 08:32 Pulse Rate 90 08/09/19 08:32 Respiratory Rate 20 08/09/19 08:32 Blood Pressure 97/70 08/09/19 08:32 O2 Sat by Pulse Oximetry (%) Pertinent Admission Physical Exam Findings: alcohol and opiate withdrawal Vital Signs Temperature 96.6 F L 08/09/19 08:32 Pulse Rate 90 08/09/19 08:32 Respiratory Rate 20 08/09/19 08:32 Blood Pressure 97/70 08/09/19 08:32 O2 Sat by Pulse Oximetry (%) Laboratory Last Values WBC 7.1 K/mm3 (4.0-10.0) 08/08/19 07:50 RBC 4.63 M/mm3 (3.60-5.2) 08/08/19 07:50 Hgb 14.3 GM/dL (10.7-15.3) 08/08/19 07:50 Hct 41.5 % (32.4-45.2) 08/08/19 07:50 MCV 89.7 fl (80-96) 08/08/19 07:50 MCH 31.0 pg (25.7-33.7) 08/08/19 07:50 MCHC 34.5 g/dl (32.0-36.0) 08/08/19 07:50 RDW 13.3 % (11.6-15.6) 08/08/19 07:50 Plt Count 297 K/MM3 (134-434) 08/08/19 07:50 MPV 8.0 fl (7.5-11.1) 08/08/19 07:50 Sodium 139 mmol/L (136-145) 08/08/19 07:50 Potassium 3.1 mmol/L (3.5-5.1) L 08/08/19 07:50 Chloride 97 mmol/L (98-107) L 08/08/19 07:50 Carbon Dioxide 36 mmol/L (21-32) H 08/08/19 07:50 Anion Gap 6 MMOL/L (8-16) L 08/08/19 07:50 BUN 15.5 mg/dL (7-18) 08/08/19 07:50 Creatinine 0.7 mg/dL (0.55-1.3) 08/08/19 07:50 Est GFR (CKD-EPI)AfAm 127.39 08/08/19 07:50 Est GFR (CKD-EPI)NonAf 109.91 08/08/19 07:50 Random Glucose 108 mg/dL (74-106) H 08/08/19 07:50 Calcium 9.7 mg/dL (8.5-10.1) 08/08/19 07:50 Total Bilirubin 0.8 mg/dL (0.2-1) 08/08/19 07:50 AST 27 U/L (15-37) 08/08/19 07:50 ALT 25 U/L (13-61) 08/08/19 07:50 Alkaline Phosphatase 86 U/L (45-117) 08/08/19 07:50 Total Protein 7.8 g/dl (6.4-8.2) 08/08/19 07:50 Albumin 4.1 g/dl (3.4-5.0) 08/08/19 07:50 POC Urine HCG, Qual Negative 08/07/19 15:13 RPR Titer Nonreactive (NONREACTIVE) 08/08/19 07:50 lab noted low K+ encourage follow up with community health primary care provider eat K+ rich food - Treatment Hospital Course: Detox Protocol Followed Patient has Accepted a Rehab Referral to: community support AA / NA - Medication Discharge Medications: Ambulatory Orders NK [No Known Home Medication] 05/22/19 - Diagnosis (1) Alcohol dependence with uncomplicated withdrawal Status: Acute (2) Opioid dependence with withdrawal Status: Acute (3) Substance induced mood disorder Status: Suspected (4) Nicotine dependence Status: Acute Qualifiers: Nicotine product type: cigarettes Substance use status: in withdrawal Qualified Code(s): F17.213 - Nicotine dependence, cigarettes, with withdrawal - AMA Did Patient Leave Against Medical Advice: Yes
[2019-08-10] MEDS ORDERED: chlordiazePOXIDE HCL 10 MG CAPSULE PO PRN
[2019-08-10] MEDS ORDERED: chlordiazePOXIDE HCL 10 MG CAPSULE PO SCH (05:00)
[2019-08-10] MEDS ORDERED: METHADONE (DETOX) 10 MG, METHADONE (DETOX) 5 MG PO ONE (10:00)
[2019-08-11] MEDS ORDERED: chlordiazePOXIDE HCL 10 MG CAPSULE PO SCH (05:00)
[2019-08-11] MEDS ORDERED: METHADONE HCL 10 MG TABLET (FOR DETOX USE ONLY) PO ONE (10:00)
[2019-08-12] MEDS ORDERED: chlordiazePOXIDE HCL 10 MG CAPSULE PO ONE (05:00)
[2019-08-12] MEDS ORDERED: METHADONE HCL 5 MG TABLET (FOR DETOX USE ONLY) PO ONE (06:00)
== END 2019-08-09 11:20 | disposition left against medical advice (07) | DRG 770 ==
LOC: YASAS 12:24 → Y3N 14:52
PROVIDERS: ADMIT Allergy & Immunology; ATTEND Allergy & Immunology
PROC: HZ2ZZZZ Detoxification Services for Substance Abuse Treatment (ICD-10-PCS; principal; 2019-08-07)
DX: F10.230 Alcohol dependence with withdrawal, uncomplicated (principal); F11.23 Opioid dependence with withdrawal; F14.20 Cocaine dependence, uncomplicated; F12.20 Cannabis dependence, uncomplicated; F17.213 Nicotine dependence, cigarettes, with withdrawal; F19.282 Other psychoactive substance dependence with psychoactive substance-induced sleep disorder; F19.280 Other psychoactive substance dependence with psychoactive substance-induced anxiety disorder; F19.24 Other psychoactive substance dependence with psychoactive substance-induced mood disorder; F39 Unspecified mood [affective] disorder; F43.10 Post-traumatic stress disorder, unspecified; B35.3 Tinea pedis; Z98.890 Other specified postprocedural states
CPT/HCPCS: 36415; 80053; 81025; 85027; 86593; Q0162